=== PATIENT | female | born 1990 | race Caucasian/White ===

== ENCOUNTER 2020-02-28 07:05 | Emergency (ER) | payer OTHER, SELFPAY ==
[2020-02-28] VITALS (36 sets, daily range): BP systolic 96–134; BP diastolic 61–76; PULSE 79–121; RESP 8–20; TEMP 36.7; O2SAT 85–100
--- NOTE | ~2020-02-28 | XR_ITS ---
EXAMINATION: XR chest 1V portable DATE: 02/28/2020 07:50 INDICATION: Syncope. TECHNIQUE: A single frontal view of the chest was obtained. COMPARISON: None. FINDINGS: There is mild scarring at the lung apices. No pleural effusion or pneumothorax. The heart s ize is normal. IMPRESSION: 1. Mild scarring at the lung apices. Reviewed, dictated and finalized at location A.
--- NOTE | ~2020-02-28 | CT_ITS ---
EXAMINATION: CTA chest PE protocol DATE: 02/28/2020 12:17 INDICATION: Dyspnea. Syncope. Tachycardia. TECHNIQUE: Computed tomography angiography (CTA) of the chest was performed with 100 mL Omnipaque-350 intravenous contrast timed to evaluate the pulmonary arteries. Coronal maximum intensity projection 3D-reconstructions were created by the technologist. Automated exposure control and iterative reconst ruction technique were employed. The dose-length product was 183.97 mGy-cm. COMPARISON: Chest single view 02/28/2020 FINDINGS: There is mild scarring at the lung apices. No pleural effusion. The heart size is normal. N o pericardial effusion. There is no pulmonary embolus. There is mild thoracic spondylosis. IMPRESSION: 1. No pulmonary embolus. Reviewed, dictated and finalized at location A. IMPRESSION: 1. No pulmonary embolus.
--- NOTE | 2020-02-28 07:19 | ECG_ITS ---
Measurements Intervals Mack Rate: 97 P: 116 IN: 128 QRS: 124 QRSD: 96 T: 166 QT: 347 QTc: 442 Interpretive Statements SINUS RHYTHM ARM LEADS REVERSED RSR' IN V1 OR V2, CONSIDER RIGHT VENTRICULAR HYPERTROPHY OR RIGHT VCD BORDERLINE T WAVE ABNORMALITY- INFERIOR LEADS BASELINE ARTIFACT- I, II, AVR, AVL BORDERLINE ECG Electronically Signed On 02-28-2020 7:33:15 CDT by Abimael Gupta D.O.
[2020-02-28 07:33] LABS: Basophils Percent Auto 0.5 % (0.2-1.2); Eosinophils Absolute Auto 0.1 K/mm3 (0-0.3); Eosinophils Percent Auto 1.4 % (0-4.4); Hematocrit 42.7 % (37.0-47.0); Hemoglobin 14.8 g/dL (12.0-15.0); Immature Granulocyte Absolute 0.01 K/mm3 (0.00-0.031); Immature Granulocyte Percent A 0.2 % (0-0.5); Lymphocytes Absolute Auto 2.19 K/mm3 (0.9-3.2); Lymphocytes Percent Auto 49.8 % (18.3-44.2); Mean Corpuscular HGB Conc 34.7 g/dl (32-36); Mean Corpuscular Hemoglobin 32.7 pg (26-34); Mean Corpuscular Volume 94.3 fl (80-100); Monocytes Absolute Auto 0.4 K/mm3 (0.1-0.6); Monocytes Percent Auto 9.8 % (2.6-8.5); Neutrophils Absolute Auto 1.7 K/mm3 (1.3-6.7); Neutrophils Percent Auto 38.3 % (45.5-73.1); Platelet Count Result 149 k/mm3 (150-375); Red Blood Count 4.53 M/mm3 (4.2-5.4); Red Cell Distribution Width 11.3 % (11.5-14.5); White Blood Count 4.4 K/mm3 (4.5-10.0)
--- NOTE | 2020-02-28 07:33 | ED.SYNCOPE ---
HPI - Syncope General Chief Complaint: Syncope Stated Complaint: syncopal episode/increased HR Time Seen by Provider: 02/28/20 07:12 Source: RN notes reviewed History of Present Illness HPI narrative: Patient presents emergency department from home for syncopal episode. Patient states that this morning she got up and walked up the stairs to go get into the shower when she felt like her heart was racing and had a syncopal episode. Patient states that she has been feeling like her heart is been racing for the past 3 to 4 days. She states that she has been ill with an upper respiratory infection for the past 1 week. States that started off as a sinus infection with rhinorrhea and is included a mild cough. She states that she was seen at [facility] urgent care last Monday and had a COVID test but does not know the results. Patient states both of her parents tested positive for COVID last week. She states she did have a fever on Monday and Monday of this week but denies any fever since that time. She denies any chest pain shortness of breath abdominal pain nausea vomiting or any other symptoms Related Data Home Medications Medication Instructions Recorded Confirmed No Home Medications 02/28/20 02/28/20 Allergies Allergy/AdvReac Type Severity Reaction Status Date / Time No Known Allergies Allergy Verified 02/28/20 07:15 Review of Systems Review of Systems: Narrative: Gen.: Denies fevers or chills Eyes: Denies eye pain or visual change ENT: Reports congestion and rhinorrhea Respiratory: Denies shortness of breath reports mild cough CV: Denies chest pain reports palpitations and syncopal episode GI: Denies abdominal pain nausea, emesis or diarrhea denies burning, urgency, frequency or hematuria Musculoskeletal: Denies back pain or muscle pain Neuro: Denies numbness, tingling, weakness or focal weakness Skin: Denies rash Except as documented, all other systems reviewed and negative [facility] Past Medical History Medical History (Updated 02/28/20 @ 12:57 by Morales Quiñones DO) Patient denies significant medical history Social History Social History (Updated 02/28/20 @ 07:35 by Morales Quiñones DO) Smoking status: Never smoker Exam Narrative: Exam Narrative: APPEARANCE: No acute distress, nontoxic, resting in bed EYES: EOMI, Vasile HEENT: Normocephalic, atraumatic, OMM RESPIRATORY: No respiratory distress Clear to auscultation bilaterally with no rhonchi wheezing or rales. CARDIOVASCULAR: Regular rate and rhythm without murmurs rubs or gallops. ABDOMINAL: Soft, nontender, nondistended, no rebound or guarding MUSCULOSKELETAl: Moves all extremities. No clubbing, cyanosis or edema. NEURO: Awake and alert x 3. Following commands, speech normal, no focal deficits SKIN:: Warm, dry. No rashes lesions or abrasions PSYCHIATRIC: Normal affect/mood, Course Course Emergency Course: Patient will get up and ambulate in ED with no difficulty Discussed with patient results of workup and diagnosis. Discussed need for follow-up with primary care, proper use of medication, and reasons to return to the emergency department. Patient understands and agrees to current treatment plan Vital Signs Vital signs: Vital Signs Temperature 98.0 F 02/28/20 07:11 Pulse Rate 104 H 02/28/20 07:11 Respiratory Rate 16 02/28/20 07:11 Blood Pressure 123/70 02/28/20 07:11 Pulse Oximetry 100 02/28/20 07:11 Temperature 98.0 F 02/28/20 07:11 Pulse Rate 94 02/28/20 10:58 Respiratory Rate 12 02/28/20 10:58 Blood Pressure 108/69 02/28/20 10:41 Pulse Oximetry 100 02/28/20 10:58 MDM - Syncope MDM Narrative Medical decision making narrative: Patient's episode of syncope is felt due to high risk cause. Syncopal episode was brief and patient is now back to normal mental status. EKG is reviewed without high-risk changes for syncope: There are no signs of prolonged QT or Brugada syndrome. Patient ambulates with a holden
[2020-02-28] MEDS: SODIUM CHLORIDE 0.9% IV 1,000 ML 999 ML IV CONT ×2 (07:35→09:37)
[2020-02-28 07:44] LABS: Anion Gap 11.9 mmol/L (7-16); Blood Urea Nitrogen 14 mg/dL (7-17); Calcium 9.1 mg/dL (8.4-10.2); Carbon Dioxide 26 mmol/L (22-30); Chloride 105 mmol/L (98-107); Estimated CRCL calculation 121 ml/min; Estimated Glomerular Filt Rate > 60; Glucose 125 mg/dL (65-105); Potassium 3.9 mmol/L (3.4-5.0); Sodium 139 mmol/L (137-145)
[2020-02-28 07:47] LABS: Alanine Aminotransferase 11 U/L (4-35); Albumin Level 4.2 g/dL (3.5-5.1); Alkaline Phosphatase 49 U/L (38-126); Aspartate Amino Transferase 23 U/L (14-36); Bilirubin,Total 0.8 mg/dL (0.2-1.3)
[2020-02-28 07:53] LABS: Partial Thromboplastin Time 26.7 SECONDS (22.3-36.8); Prothrombin Time 12.7 Seconds (11.1-14.7)
[2020-02-28 07:59] LABS: Troponin I < 0.012 ng/mL (0.000-0.034)
[2020-02-28 07:59] LABS: D Dimer < 0.22 ug/mL (<0.48)
--- NOTE | 2020-02-28 08:45 | PC.NURSE ---
Pt placed on at 2l nc for spo2 of 89% on room air. ERP aware.
[2020-02-28 10:43] LABS: Troponin I < 0.012 ng/mL (0.000-0.034)
--- NOTE | 2020-02-28 11:29 | PC.NURSE ---
Ambulatory in halls without difficulty.
== END 2020-02-28 13:07 | disposition home or self-care (01) ==
PROVIDERS: Emergency Provider Emergency Medicine; PCP Family Medicine
DX: I95.1 Orthostatic hypotension (principal); R94.31 Abnormal electrocardiogram [ECG] [EKG]
CPT/HCPCS: 36415; 71045; 71275; 80048; 80076; 81025; 84484; 85025; 85380; 85610; 85730; 93005; 96360; 96361; 99284; J7030; Q9967

== ENCOUNTER 2023-04-08 15:26 | Emergency (ER) | payer OTHER, SELFPAY ==
[2023-04-08 16:27] VITALS: BP 127/68; PULSE 98; RESP 18; TEMP 36.7; O2SAT 100
--- NOTE | 2023-04-08 17:06 | ED.URI ---
HPI - URI/Sore Throat General Chief Complaint: Upper Respiratory Infection Stated Complaint: sorethroat Time Seen by Provider: 04/08/23 16:56 Source: patient and RN notes reviewed Mode of arrival: ambulatory Limitations: no limitations History of Present Illness HPI Narrative: Patient presents today complaining of a 2 week history of nasal congestion, primarily on the right side. States she does have some normal allergies this time of year, but does not take any control medication for them. She is also complaining of right-sided tonsil swelling that she noted today. Denies sore throat or any additional symptoms. Related Data Allergies Allergy/AdvReac Type Severity Reaction Status Date / Time No Known Allergies Allergy Verified 04/08/23 17:12 Review of Systems Review of Systems: CONSTITUTIONAL: Denies body aches, fever, chills, or sweats. EYES: Denies visual changes, redness, or discharge. ENT: Denies rhinorrhea, sore throat, or otalgia.+ nasal congestion, tonsil swelling CARDIOVASCULAR: Denies chest pain, palpitations, or edema. RESPIRATORY: Denies cough or dyspnea. GASTROINTESTINAL: Denies abdominal pain, nausea, vomiting, or diarrhea. GENITOURINARY: Denies dysuria or hematuria. SKIN: Denies rash, itching, or wounds. MUSCULOSKELETAL: Denies back pain, joint pain, or myalgia. NEUROLOGIC: Denies headache, numbness, tingling, or weakness. PSYCH: Denies depression or anxiety. [facility] Past Medical History Medical History Patient denies significant medical history Social History Social History Smoking status: Never smoker Comments At time of signature, I have reviewed and agree with nursing past medical, surgical, social and family history unless otherwise noted. Please see nursing chart for further information. There is no relevant family history pertinent to the presenting complaint Exam Narrative: GENERAL: Well-appearing, well-nourished, and in no acute distress. HEAD: Normocephalic, atraumatic. EYES: EOMI. No redness or drainage. Conjunctivae normal. ENT: Mucous membranes pink and moist. Nares congested. Right nasal turbinates are erythematous and edematous. Left nasal turbinates are normal. No rhinorrhea. TMs normal bilaterally. Right tonsil is 2+. Left tonsil is 1+.. Uvula midline. NECK: Normal AROM. Supple. No lymphadenopathy. CHEST: No respiratory distress. Clear to auscultation. HEART: Regular rate and rhythm. No murmur appreciated. Normal peripheral pulses. EXTREMITIES: Normal range of motion. No edema. SKIN: Warm, dry, no rash. Capillary refill normal. Normal skin turgor. NEURO: No focal deficits. Alert and oriented x3. Gait steady. PSYCH: Normal affect. No signs of depression or anxiety. Course Course Level of Care: Express Care Visit Vital Signs Vital signs: Vital Signs Temperature 98.0 F 04/08/23 16:27 Pulse Rate 98 04/08/23 16:27 Respiratory Rate 18 04/08/23 16:27 Blood Pressure 127/68 04/08/23 16:27 Pulse Oximetry 100 04/08/23 16:27 Oxygen Delivery Room Air 04/08/23 16:27 Temperature 98.0 F 04/08/23 16:27 Pulse Rate 98 04/08/23 16:27 Respiratory Rate 18 04/08/23 16:27 Blood Pressure 127/68 04/08/23 16:27 Pulse Oximetry 100 04/08/23 16:27 Oxygen Delivery Room Air 04/08/23 16:27 Reviewed. Pt has been instructed to follow up with her PCP regarding her elevated blood pressure today. MDM - URI/Sore Throat MDM Narrative Medical decision making narrative: Will treat patient for sinusitis with Augmentin. Instructed to follow-up with PCP if symptoms do not improve. Provided reassurance regarding tonsils. Differential Diagnosis Differential diagnosis: Likely upper respiratory infection, sinusitis, viral infection, pharyngitis and other (Allergies, tonsillitis) Critical Care Time Critical Care Time Critical C
== END 2023-04-08 17:15 | disposition home or self-care (01) ==
PROVIDERS: Emergency Provider Nurse Practitioner; PCP Family Medicine
DX: J01.90 Acute sinusitis, unspecified (principal)
CPT/HCPCS: 99213; G0463

== ENCOUNTER → 2023-05-02 09:15 | Outpatient (CLI) | payer OTHER, SELFPAY ==
--- NOTE | ~2023-05-02 | US_ITS ---
US axilla RT DATE: 05/02/2023 09:42 INDICATION: Right axillary lump for 2 months TECHNIQUE: Real-time and color flow imaging of the right axilla COMPARISON: None FINDINGS: At the area of clinical complaint of palpable lump there is an irregular hypoechoic solid lesion rigo uring 5 x 7.5 x 8.8 mm. No fatty hilum is demonstrated. The margins are irregular. Ultrasound-guided biopsy is recommended. There is a benign-appearing approximately 4 x 9.4 x 5.2 mm lymph node in the right axilla as well. No rmal fatty hilum and relatively uniform echogenicity and thickness of the cortex is noted. No suspici ous shadowing is detected. IMPRESSION: Irregular up to 8.8 mm solid lesion in the right axilla; ultrasound-guided biopsy is romi mmended Dr. Hutton telephoned the report and ultrasound-guided biopsy recommendation on 05/02/2023 at 1135 hours to Nurse Cordero. Reviewed, dictated and finalized at [facility]. Reviewed, dictated and finalized at location A. IMPRESSION: Irregular up to 8.8 mm solid lesion in the right axilla; ultrasound -guided biopsy is recommended Dr. Hutton telephoned the report and ultrasound-guided biopsy recommendation on at 1135 hours to Nurse Cordero.
== END ==
PROVIDERS: PCP Family Medicine; Visit Provider Nurse Practitioner Family
DX: R22.31 Localized swelling, mass and lump, right upper limb (principal)
CPT/HCPCS: 76882

== ENCOUNTER 2023-08-14 09:11 | Outpatient (CLI) | payer OTHER, SELFPAY ==
--- NOTE | ~2023-08-14 | US_ITS ---
EXAMINATION: US axilla RT DATE: 08/14/2023 09:57 INDICATION: Right axillary mass. TECHNIQUE: Multiple grayscale and Doppler ultrasound images of the right axilla were obtained. COMPARISON: Ultrasound 05/02/2023 FINDINGS: There is a normal lymph node in the patient's area of concern in right axilla. No abnormal mass. IMPRESSION: 1. Normal lymph node in the patient's area of concern in right axilla. The biopsy was canceled. Reviewed, dictated and finalized at location A. SYSTEMS SAFETY ENGINEER IMPRESSION: 1. Normal lymph node in the patient's area of concern in right axilla. The biop sy was canceled.
== END 2023-08-14 09:12 | disposition home or self-care (01) ==
PROVIDERS: PCP Family Medicine; Visit Provider Family Medicine
DX: R22.31 Localized swelling, mass and lump, right upper limb (principal)
CPT/HCPCS: 76882